=== PATIENT | female | born 1960 | race Two or more races ===

== ENCOUNTER 2018-10-21 05:15 | Emergency (ER) | payer BC ==
[~2018-10-21] VITALS: Ht 152.4 cm; Wt 72.1 kg
[~2018-10-21 05:15] MED LIST: ACTOS; GLIP-115; INSLANTI; METFORMIN
[2018-10-21 05:25] VITALS: BP 135/60
[2018-10-21] MEDS ORDERED: SODIUM CHLORIDE 0.9% 1,000 ML IV ONE (08:08)
== END 2018-10-21 12:04 | disposition left against medical advice (07) ==
LOC: EDBD 05:15 → ER 05:20
DX: E11.65 Type 2 diabetes mellitus with hyperglycemia (principal); Z79.4 Long term (current) use of insulin; R42 Dizziness and giddiness
CPT/HCPCS: 93005

== ENCOUNTER → 2023-05-07 | Outpatient (CLI) | payer MEDICARE, BC ==
[~2023-05-07] MED LIST changes: -GLIP-115; +GLIP5TAB12
== END | disposition home or self-care (01) ==
LOC: Rad HDHVI 09:23
PROVIDERS: ATTEND Internal Medicine Cardiovascular Disease
DX: I34.81 Nonrheumatic mitral (valve) annulus calcification (principal); I10 Essential (primary) hypertension
CPT/HCPCS: 93306

== ENCOUNTER → 2023-05-18 | Outpatient (CLI) | payer MEDICARE, BC | END | disposition home or self-care (01) | LOC: Rad HDHVI 08:00 | PROVIDERS: ATTEND Internal Medicine Cardiovascular Disease | DX: I65.23 Occlusion and stenosis of bilateral carotid arteries (principal); I10 Essential (primary) hypertension | CPT/HCPCS: 93880 ==

== ENCOUNTER → 2023-05-25 | Outpatient (CLI) | payer MEDICARE, BC ==
[~2023-05-25] VITALS: Ht 147.3 cm; Wt 77.1 kg
[~2023-05-25] MED LIST changes: +EPINEPHrine HCL 1 MG/1 ML AMP ONE; +TRANEXAMIC ACID 0 ML ONE
== END | disposition home or self-care (01) ==
LOC: Rad HDHVI 09:21
PROVIDERS: ATTEND Internal Medicine Cardiovascular Disease
DX: R07.89 Other chest pain (principal); E11.65 Type 2 diabetes mellitus with hyperglycemia; E78.00 Pure hypercholesterolemia, unspecified; Z79.4 Long term (current) use of insulin; Z82.49 Family history of ischemic heart disease and other diseases of the circulatory system
CPT/HCPCS: 78452; 93017; 96374; A9500

== ENCOUNTER 2025-01-31 12:32 | Outpatient (CLI) | payer MEDICARE, BC ==
[~2025-01-31 12:32] MED LIST changes: -EPINEPHrine HCL 1 MG/1 ML AMP ONE; -GLIP5TAB12; +GLIP5TAB21; -TRANEXAMIC ACID 0 ML ONE
== END 2025-01-31 17:00 | disposition home or self-care (01) ==
LOC: Rad HDHVI 12:32
PROVIDERS: ATTEND Internal Medicine Cardiovascular Disease
DX: R07.89 Other chest pain (principal)
CPT/HCPCS: 93306

== ENCOUNTER 2025-02-13 09:35 | Outpatient (CLI) | payer MEDICARE, BC ==
[~2025-02-13] VITALS: Ht 149.9 cm; Wt 86.2 kg
[2025-02-13] MEDS ORDERED: ADENOSINE 90 MG/30 ML INJ IV ONE (10:55)
[2025-02-13] MEDS ORDERED: ADENOSINE 72 MG in GIVE UN-DILUTED 0 ML IV ONE (17:15)
== END 2025-02-13 17:00 | disposition home or self-care (01) ==
LOC: Rad HDHVI 09:35
PROVIDERS: ATTEND Internal Medicine Cardiovascular Disease
DX: I49.1 Atrial premature depolarization (principal); I11.0 Hypertensive heart disease with heart failure; I50.33 Acute on chronic diastolic (congestive) heart failure; E11.40 Type 2 diabetes mellitus with diabetic neuropathy, unspecified; E78.00 Pure hypercholesterolemia, unspecified; R07.89 Other chest pain; Z82.49 Family history of ischemic heart disease and other diseases of the circulatory system
CPT/HCPCS: 78452; 93017; A9500; J0153

== ENCOUNTER 2025-03-01 13:05 | Outpatient (CLI) | payer MEDICARE, BC | END 2025-03-01 17:00 | disposition home or self-care (01) | LOC: Rad HDHVI 13:05 | PROVIDERS: ATTEND Internal Medicine Cardiovascular Disease | DX: I65.23 Occlusion and stenosis of bilateral carotid arteries (principal); I70.203 Unspecified atherosclerosis of native arteries of extremities, bilateral legs; R07.89 Other chest pain | CPT/HCPCS: 93880; 93925 ==

== ENCOUNTER 2025-04-06 06:34 | Inpatient (IN) | payer MEDICARE, BC ==
[2025-04-03 15:19] LABS: Hematocrit 39.1 % (36.0-46.0); Hemoglobin 13.1 g/dL (12.2-16.2); Mean Corpuscular Hemoglobin 28.5 pg (28.0-32.0); Mean Corpuscular Volume 85.3 fL (80.0-100.0); Nucleated Red Blood Cells % 0.1 %
[2025-04-03 15:34] LABS: INR 1.0 (0.9-1.15); Partial Thromboplastin Time 25.9 SEC (24.5-34.5); Prothrombin Time 10.6 sec (9.3-11.8)
[2025-04-03 16:34] LABS: Alanine Aminotransferase 15 U/L (7-40); Albumin 4.6 g/dL (3.2-4.8); Alkaline Phosphatase 84 U/L (46-116); Anion Gap 11 (5-15); BUN/Creatinine Ratio 14.8 (10.0-20.0); Bilirubin, Total 0.3 mg/dL (0.2-1.0); Blood Urea Nitrogen 13 mg/dL (9-23); Calcium 9.9 mg/dL (8.7-10.4); Carbon Dioxide 30 mmol/L (20-31); Chloride 103 mmol/L (98-107); Potassium 4.0 mmol/L (3.5-5.1); Sodium 144 mmol/L (136-145); Total Protein 8.2 g/dL (5.7-8.2)
[2025-04-03 16:35] LABS: Glucose 112 mg/dL (74-106)
[2025-04-06] VITALS (15 sets, daily range): BP systolic 90–123; BP diastolic 49–67; PULSE 67–91; RESP 12–21; TEMP 97.6–99.2; O2SAT 92–96
[~2025-04-06] VITALS: Ht 152.4 cm; Wt 86.2 kg
[~2025-04-06 06:34] MED LIST changes: -ACTOS; +ASPI325T6 PO; +ATOR-507 PO; +ESCI10TA PO; -GLIP5TAB21; +INSU100I4 SC; +LATA0.008 OP; -METFORMIN; +TIMO0.5S28 OP
[2025-04-06] MEDS: ANGIOMAX 250 MG VIAL IV ONE (09:39)
[2025-04-06] MEDS: LIDOCAINE 2%HCL (LOCAL ANESTH.) INJ 20ML MDV ONE (09:39)
[2025-04-06] MEDS: SODIUM CHL 0.9% 50 ML ONE (09:39)
[2025-04-06] MEDS: GLYCOPYRROLATE 0.2 MG/ML 1ML VIAL ONE ×2 (10:12→10:19)
[2025-04-06] MEDS: ATROPINE SULF 1 MG/10ml SYR ONE (10:19)
[2025-04-06] MEDS: NITROGLYCERIN 0.4MG/DOSE SPRAY 4.9GM ONE (10:19)
[2025-04-06] MEDS: EPINEPHrine HCL 1 MG/10 ML SYRG ONE (10:21)
[2025-04-06] MEDS: IOHEXOL 350 MG/ML 100ML IJ ONE (10:23)
[2025-04-06] MEDS: CLOPIDOGREL BISULFATE 75 MG TAB ONE (10:36)
--- NOTE | 2025-04-06 10:53 | DVHDS ---
DATE OF DISCHARGE: 04/07/2025 DISCHARGE DIAGNOSIS: The patient underwent successful angioplasty with stent placement of the right internal carotid artery. Clinically, the patient is stable, may be discharged home. Neurological examination pre and post intervention was negative. The patient may be discharged home on dual antiplatelet therapy. Follow up with me in 1 week. Stable at the time of discharge. DISPOSITION: Home. ACTIVITIES: As instructed. DIET: 2 g sodium diet. Geovanni Herrera MD SA/LOKESH TID: [id number] RECEIPT: [id number]
--- NOTE | 2025-04-06 11:11 | DVHOP ---
DATE OF SURGERY: 04/06/2025 PROCEDURES TO BE PERFORMED: * Selective left and right carotid angiography. * Thrombectomy of the iliac with Shockwave device. * Angioplasty with stent placement of the right internal carotid artery with a 9 x 7 x 30 mm Xact stent with distal embolic protection device. * Conscious sedation. DESCRIPTION OF PROCEDURE: The patient was prepped and draped under sterile condition. 1% Xylocaine was used to anesthetize the right groin. Using Cook needle, right femoral artery was engaged with Seldinger technique. A 6-Fijian sheath in the right femoral artery. Using a 6-Fijian JR4 diagnostic catheter, selective left and right carotid, cerebral and vertebral angiography was performed. Then, following that, the 6-Fijian diagnostic system was exchanged for an 8-Fijian interventional system. Using a 6-Fijian JR4 diagnostic catheter, it was placed in the right common carotid and a Supra Core wire was then appropriately positioned. Following the distal placement of the Supra Core in the external carotid, the 6-Fijian JR4 diagnostic catheter was exchanged for an 8-Fijian multipurpose guide catheter. Then, the ____ wire was deployed distal to the stenosis of the right internal carotid artery. It was then balloon angioplastied with a thrombectomy device with a 3.5 x 13 mm cardiac device. Following the thrombectomy and balloon angioplasty, a 9 x 7 x 30 mm Xact stent was then deployed across the lesion. Following that, it was then postdilated using a 4 mm x 30 mm Viatrac balloon. This was followed by retrieval of the ____ device. Angiogram pre and post intervention shows clear improvement. There was no distal embolization. The patient's neurological examination pre and post remain intact. FINDINGS: * Left and right common carotid artery without any flow restrictive lesion. * Left and right external carotid artery mild intimal irregularity without any flow restrictive lesion. * Left internal carotid artery, mild intimal irregularity without any flow restrictive lesion. * Right internal carotid artery had an 80% stenosis with an ulcerating plaque. Status post angioplasty with thrombectomy of the iliac and the internal carotid artery with a Shockwave device with less than 10% residual post angioplasty with stent placement and less than 10% residual stenosis. There were no complications. The patient tolerated the procedure well. CONCLUSION: The patient had successful revascularization of the right internal carotid artery with stent placement. Geovanni Herrera MD SA/JUSTEN/JUAN RUFF: 04/06/2025 10:42 AM TID: [id number] RECEIPT: [id number]
[2025-04-06] MEDS: DEXTROSE (50%) 50ML SYRG IV ONE (12:00)
[2025-04-06] MEDS ORDERED: NITROGLYCERIN 0.4 MG SL TAB SL PRN (12:00)
[2025-04-06] MEDS ORDERED: MORPHINE SULFATE INJ 2 MG/ml SYRG IV PRN (12:00)
[2025-04-06] MEDS: ACCU-CHEK COMFORT CURVE STRIP VI ONE (12:00)
[2025-04-06] MEDS: ACETAMINOPHEN 325 MG TAB PO PRN (14:24)
[2025-04-06] MEDS: InsuLIN REG 1unit/0.01ml Soln (100units/ml) SC ONE (14:40)
[2025-04-06] MEDS: SODIUM CHLORIDE 0.9% 1,000 ML IV SCH (15:30)
--- NOTE | 2025-04-06 16:13 | DVHHP ---
ADMIT DATE: 04/06/2025 HISTORY OF PRESENT ILLNESS: A 64-year-old with history of dyslipidemia, history of peripheral vascular disease, family history of coronary artery disease and history of diabetes with diabetic neuropathy, vasculopathy, nephropathy, now on carotid Doppler was noted to have high-grade 90% narrowing of the right internal carotid artery. The patient is symptomatic with TIA-like symptoms. The patient is now to undergo carotid angiography with possibility of angioplasty. The patient being diabetic neuropathy and peripheral vascular disease, she is high risk for any kind of surgical intervention. It also appears to be a very atheromatous and calcified and ulcerating plaque. Again, distal embolization in this kind of carotid endarterectomy is very high. It is a soft plaque on top of that. FAMILY HISTORY: As stated above. REVIEW OF SYSTEMS: She denies any fever, chills, melena, hematochezia, hematemesis or hemoptysis. No history of irritable bowel syndrome or hematuria. No history of inflammatory bowel disease. She denies any syncopal episode. No history of CVA, but she has TIA. No seizure disorder. No movement disorder. Positive for peripheral vascular disease. PHYSICAL EXAMINATION: VITAL SIGNS: Blood pressure is 148/84, pulse 70, O2 saturation 98% on room air. HEENT: Pupils are reactive. Funduscopic exam is benign. Sclerae are anicteric. Extraocular muscles are intact. Tympanic membranes are negative. Oral mucosa moist. Posterior pharynx without any exudate. NECK: No JVD is appreciated. Carotid pulses are 2+ and symmetrical. Normal upstroke and contour. No cervical adenopathy. No supraclavicular adenopathy. PULMONARY: Clear to auscultation. Tympanic to percussion. No rhonchi. No wheezes. No egophony. CARDIOVASCULAR: Regular rate without S3, without S4. ABDOMEN: Obese. Unable to appreciate organomegaly. Liver approximately 5 cm. No epigastric tenderness. No suprapubic tenderness. No CVA tenderness. Stool guaiac is negative. NEUROLOGIC: The patient at this time is intact. DTRs are 2+ and symmetrical. Cranial nerves 2-12 are within normal limits. Sensory and motor modalities are intact. No pronator drift. No ataxia. EXTREMITIES: 2+ pulses bilaterally. ASSESSMENT AND PLAN: Thus, patient with peripheral vascular disease, diabetes with diabetic neuropathy, vasculopathy, nephropathy, now to undergo carotid angiography, history of TIA. Geovanni Herrera MD SA/NELLIE/MARTINEZ TID: [id number] RECEIPT: [id number]
[2025-04-06] MEDS: ATORVASTATIN 20 MG TAB PO SCH (21:17)
[2025-04-06] MEDS: LATANOPROST 0.005 % OPTH(EYE) SOL 2.5ML OP SCH (21:17)
[2025-04-07 01:00] VITALS: BP 106/62; PULSE 73; RESP 17; TEMP 98.6; O2SAT 98
[2025-04-07 05:00] VITALS: BP 118/69; PULSE 71; RESP 18; TEMP 97.6; O2SAT 94
[2025-04-07] MEDS: INSULIN LANTUS (GLARGINE) 1 /0.01ml (100units/ml) SC SCH (06:39)
[2025-04-07] MEDS ORDERED: DEXTROSE (50%) 50ML SYRG IV PRN (07:30)
[2025-04-07] MEDS: InsuLIN REG 1unit/0.01ml Soln (100units/ml) IV ONE (07:30)
[2025-04-07 08:00] VITALS: PULSE 73; PULSE 77; RESP 17; O2SAT 94
[2025-04-07 09:00] VITALS: BP 116/51; PULSE 79; RESP 19; TEMP 97.8; O2SAT 97
[2025-04-07] MEDS: TIMOLOL MAL 0.5% OPTH(EYE) SOL 5ML OP SCH (10:00)
[2025-04-07] MEDS ORDERED: PATIENTS OWN MEDICATION (Aspirin 81 MG) PO SCH (10:00)
[2025-04-07] MEDS ORDERED: TIMOLOL MALEATE 0.5% OP SCH (10:00)
[2025-04-07] MEDS: CITALOPRAM HYDROBR 20 MG TAB PO SCH (10:00)
[2025-04-07] MEDS ORDERED: PATIENTS OWN MEDICATION (Atorvastatin Calcium (Lipitor) 1 TAB) PO SCH (10:00)
[2025-04-07] MEDS ORDERED: PATIENTS OWN MEDICATION (Escitalopram Oxalate (Lexapro) 10 MG) PO SCH (10:00)
[2025-04-07] MEDS: CLOPIDOGREL BISULFATE 75 MG TAB PO ONE (11:10)
[2025-04-07] MEDS: InsuLIN REG 1unit/0.01ml Soln (100units/ml) SC SCH (11:30)
[2025-04-07 13:00] VITALS: BP 118/66; PULSE 77; RESP 17; TEMP 97.7; O2SAT 97
[2025-04-07] MEDS: ACCU-CHEK COMFORT CURVE STRIP VI SCH (13:40)
[2025-04-07 14:16] VITALS: BP 118/66; PULSE 77; RESP 17; TEMP 36.6; O2SAT 97
[2025-04-07] MEDS ORDERED: InsuLIN REG 1unit/0.01ml Soln (100units/ml) SC SCH (22:00)
== END 2025-04-07 15:39 | disposition home or self-care (01) | DRG 27 ==
LOC: CATH 06:34 → OVERFLOW 11:58 → TELE-CENTR 18:12
PROVIDERS: ADMIT Internal Medicine Cardiovascular Disease; ATTEND Internal Medicine Cardiovascular Disease
PROC: 037K3DZ Dilation of Right Internal Carotid Artery with Intraluminal Device, Percutaneous Approach (ICD-10-PCS; principal; 2025-04-06)
PROC: 03CK3ZZ Extirpation of Matter from Right Internal Carotid Artery, Percutaneous Approach (ICD-10-PCS; 2025-04-06)
PROC: B3151ZZ Fluoroscopy of Bilateral Common Carotid Arteries using Low Osmolar Contrast (ICD-10-PCS; 2025-04-06)
PROC: B3181ZZ Fluoroscopy of Bilateral Internal Carotid Arteries using Low Osmolar Contrast (ICD-10-PCS; 2025-04-06)
PROC: B31C1ZZ Fluoroscopy of Bilateral External Carotid Arteries using Low Osmolar Contrast (ICD-10-PCS; 2025-04-06)
PROC: B31G1ZZ Fluoroscopy of Bilateral Vertebral Arteries using Low Osmolar Contrast (ICD-10-PCS; 2025-04-06)
DX: I65.21 Occlusion and stenosis of right carotid artery (principal); E11.51 Type 2 diabetes mellitus with diabetic peripheral angiopathy without gangrene; E11.40 Type 2 diabetes mellitus with diabetic neuropathy, unspecified; Z86.73 Personal history of transient ischemic attack (TIA), and cerebral infarction without residual deficits; E78.5 Hyperlipidemia, unspecified; Z82.49 Family history of ischemic heart disease and other diseases of the circulatory system
CPT/HCPCS: 36223; 36224; 36415; 37215; 80053; 82962; 85025; 85610; 85730; 99152; C1876; G0378; J1815

== ENCOUNTER 2025-04-12 11:30 | Outpatient (CLI) | payer MEDICARE, BC ==
[2025-04-12 11:24] VITALS: BP 127/57; PULSE 62; RESP 17; O2SAT 100
[2025-04-12] MEDS: BACITRACIN TOP OINT 1 UD PKG TOP ONE ×2 (11:41→13:00)
[2025-04-12] MEDS: ceFAZolin 1GM/50ML 50 ML IV ONE ×2 (11:41→12:14)
[2025-04-12 13:05] VITALS: BP 151/69; PULSE 63; RESP 18; O2SAT 100
== END 2025-04-14 17:00 | disposition home or self-care (01) ==
LOC: CHF HDHVI 11:30
PROVIDERS: ATTEND Internal Medicine Cardiovascular Disease
DX: L03.319 Cellulitis of trunk, unspecified (principal); I11.0 Hypertensive heart disease with heart failure; I50.33 Acute on chronic diastolic (congestive) heart failure; E11.51 Type 2 diabetes mellitus with diabetic peripheral angiopathy without gangrene; E11.40 Type 2 diabetes mellitus with diabetic neuropathy, unspecified; E11.65 Type 2 diabetes mellitus with hyperglycemia; E78.00 Pure hypercholesterolemia, unspecified; Z79.4 Long term (current) use of insulin; Z86.73 Personal history of transient ischemic attack (TIA), and cerebral infarction without residual deficits; Z79.899 Other long term (current) drug therapy
CPT/HCPCS: 96365; G0463; J0690